=== PATIENT | female | born 1970 | race Hispanic/Latino ===

== ENCOUNTER 2016-08-15 21:21 | Emergency (ER) | payer OTHER ==
[2016-08-15 21:34] VITALS: BP 103/66; PULSE 98; RESP 22; TEMP 98; O2SAT 100
[2016-08-15] MEDS ORDERED: Sodium Chloride 0.9% 1,000 ML IV STA (22:10)
--- NOTE | 2016-08-15 22:15 | ED PDOC ---
HPI: General Adult Time Seen by Provider: 08/15/16 21:58 Chief Complaint (Nursing): Anxiety Chief Complaint (Provider): "help me" History Per: Patient, Family History/Exam Limitations: other Onset/Duration Of Symptoms: Hrs Additional Complaint(s): Pt is not answering questions. PT only states "help me". According to pt was with his sister and out of no where began acting bizarre at approx 1930. Pt was given xanax (from family member) at 8pm. Pt does not have history of anxiety or depression and has never been on medications for either. Pt nodding to yes and no questions only. PT nods yes to chest pain. states she has been under a lot of stress due to work. Past Medical History Reviewed: Historical Data, Nursing Documentation, Vital Signs Vital Signs: Last Vital Signs Temp 98 F 08/15/16 21:30 Pulse 98 H 08/15/16 21:30 Resp 22 08/15/16 21:30 BP 103/66 08/15/16 21:30 Pulse Ox 100 08/15/16 22:17 - Medical History PMH: No Chronic Diseases Other PMH: History as per . - Surgical History Surgical History: No Surg Hx - Family History Family History: States: Unknown Family Hx - Living Arrangements Living Arrangements: With Family - Social History Current smoker - smoking cessation education provided: No Alcohol: Occasional Drugs: Denies - Allergies Allergies/Adverse Reactions: Allergies Allergy/AdvReac Type Severity Reaction Status Date / Time No Known Allergies Allergy Verified 08/15/16 21:30 Review of Systems ROS Statement: Except As Marked, All Systems Reviewed And Found Negative Cardiovascular: Positive for: Chest Pain Psych: Positive for: Anxiety (?) Physical Exam - Reviewed Nursing Documentation Reviewed: Yes Vital Signs Reviewed: Yes - Physical Exam Appears: Positive for: Well, Non-toxic, No Acute Distress Head Exam: Positive for: ATRAUMATIC, NORMAL INSPECTION, NORMOCEPHALIC Skin: Positive for: Normal Color, Warm, DRY Eye Exam: Positive for: Normal appearance (Pt would not open eyes ) ENT: Positive for: Normal ENT Inspection Neck: Positive for: Normal, Painless ROM Cardiovascular/Chest: Positive for: Regular Rate, Rhythm Respiratory: Positive for: Normal Breath Sounds. Negative for: Accessory Muscle Use, Respiratory Distress Gastrointestinal/Abdominal: Positive for: Normal Exam, Bowel Sounds, Soft Back: Positive for: Normal Inspection Extremity: Positive for: Normal ROM Neurologic/Psych: Positive for: Alert, Other (Pt not answering questions of following directions ) - Laboratory Results Result Diagrams: 08/15/16 22:30 08/15/16 22:30 - ECG O2 Sat by Pulse Oximetry: 100 Pulse Ox Interpretation: Normal Medical Decision Making Medical Decision Making: Pt endosred pending U/A and crsis evaluation. cbc, cmp, alcohol, troponin and urine drug screen normal Head CT normal. Disposition - Clinical Impression Clinical Impression: Altered mental status - Patient ED Disposition Is Patient to be Admitted: Transfer of Care - Disposition Disposition: Transfer of Care Disposition Time: 00:22 Condition: GOOD
[2016-08-15 22:37] LABS: BASO # 0.1 K/uL (0.0-0.2); BASO % 0.6 % (0.0-2.0); EOS # 0.1 K/uL (0.0-0.7); EOS % 0.8 % (0.0-4.0); LYMPH % 11.1 % (20.0-40.0); MEAN CELL VOLUME 87.8 fl (81.0-99.0); MEAN CORPUSCULAR HEMOGLOBIN 29.3 pg (27.0-31.0); MEAN CORPUSCULAR HGB CONC 33.4 g/dL (33.0-37.0); MEAN PLATELET VOLUME 8.3 fl (7.2-11.7); MONO # 0.6 K/uL (0.0-0.8); MONO % 6.6 % (0.0-10.0); NEUT % 80.9 % (50.0-75.0); RED CELL DISTRIBUTION WIDTH 12.8 % (11.5-14.5); WHITE BLOOD COUNT 8.7 K/uL (4.8-10.8)
[2016-08-15 22:50] LABS: ALB/GLOB RATIO 1.6 (1.0-2.1); ALKALINE PHOSPHATASE 41 U/L (38-126); ALT/SGPT 27 U/L (9-52); AST/SGOT 24 U/L (14-36); BILIRUBIN,TOTAL 0.4 mg/dl (0.2-1.3); BLOOD UREA NITROGEN 14 mg/dl (7-17); CALCIUM 9.6 mg/dL (8.4-10.2); CARBON DIOXIDE 24 mmol/L (22-30); CHLORIDE 103 mmol/L (98-107); GFR AFRICAN-AMERICAN > 60; GLUCOSE,RANDOM 113 mg/dL (65-105); POTASSIUM 3.4 MMOL/L (3.6-5.0); SODIUM 138 mmol/l (132-148); TOTAL PROTEIN 7.2 G/DL (6.3-8.2)
[2016-08-16 00:19] LABS: RBC URINE 4 /hpf (0-3); URINE BACTERIA RARE (<OCC); URINE BILIRUBIN NEGATIVE (NEGATIVE); URINE BLOOD NEGATIVE (NEGATIVE); URINE COLOR YELLOW (YELLOW); URINE GLUCOSE (UA) NEG (Normal); URINE KETONE TRACE mg/dL (NEGATIVE); URINE LEUKOCYTE ESTERASE TRACE Leu/uL (Negative); URINE PROTEIN 100 mg/dL (NEGATIVE); URINE UROBILINOGEN 0.2-1.0 mg/dL (0.2-1.0); WBC URINE 2 /hpf (0-5)
--- NOTE | 2016-08-16 08:39 | CT ---
PROCEDURE: CT HEAD WITHOUT CONTRAST. HISTORY: Altered mental status COMPARISON: None available. TECHNIQUE: Axial computed tomography images were obtained through the head/brain without intravenous contrast. Radiation dose: Total exam DLP = 1188 mGy-cm. This CT exam was performed using one or more of the following dose reduction techniques: Automated exposure control, adjustment of the mA and/or kV according to patient size, and/or use of iterative reconstruction technique. FINDINGS: HEMORRHAGE: No intracranial hemorrhage. BRAIN: No mass effect or edema. No atrophy or chronic microvascular ischemic changes. Small hypodensity in the left basal ganglia may represent a prominent perivascular space. VENTRICLES: Unremarkable. No hydrocephalus. CALVARIUM: Unremarkable. PARANASAL SINUSES: Unremarkable as visualized. No significant inflammatory changes. MASTOID AIR CELLS: Unremarkable as visualized. No inflammatory changes. OTHER FINDINGS: None. IMPRESSION: No acute intracranial abnormality. If focal neurologic deficit persists, consider MRI. These findings were preliminarily reported at 11:09 p.m. on 08/15/[address] Ravindra Judge from [place].
--- NOTE | 2016-08-16 10:10 | RAD ---
HISTORY: chest pain COMPARISON: No prior. FINDINGS: LUNGS: No active pulmonary disease. PLEURA: No significant pleural effusion identified, no pneumothorax apparent. CARDIOVASCULAR: Normal. OSSEOUS STRUCTURES: No significant abnormalities. VISUALIZED UPPER ABDOMEN: Normal. OTHER FINDINGS: None. IMPRESSION: No active disease.
--- NOTE | 2016-08-17 09:23 | CON ---
DATE: 08/16/2016 NEUROLOGY CONSULTATION REASON FOR CONSULTATION: Difficulty with speech. HISTORY OF PRESENTING ILLNESS: The patient is a 46-year-old female who has been asked for evaluation of episode of difficulty with speech. Yesterday, the patient was home, and she said she was under a lot of stress to work, and as she was trying to text her aunt, she did not know how to text her. Jean dickey was unable to speak, and the words were not coming out right, and she was a little confused, as per . Her symptoms lasted for an hour or two, and then after that, she started getting better sl owly and gradually. At the moment, she complains of headache. According to her, she had severe epis ode of anxiety a few years ago as well. She denies any focal weakness in arms or legs. Denies any d izziness. Does complain of mild headache. She usually does not get bad headaches. At the moment, s he feels fine. REVIEW OF SYSTEMS: Denies any chest pain. She does have mild headache. Denies any constipation, di arrhea, dysuria, pyuria, cough, sputum production, hallucinations, skin rash, or any abnormal swelli ng of the body. PAST MEDICAL HISTORY: None. MEDICATIONS AT HOME: None. ALLERGIES: No known drug allergies. SOCIAL HISTORY: Denies smoking, socially drinks alcohol. Denies use of any illicit drugs. FAMILY HISTORY: Noncontributory to the case. PHYSICAL EXAMINATION: GENERAL: The patient is a middle-aged female lying on the bed in no acute distress. VITAL SIGNS: Her blood pressure is 124/80. Heart rate is 76 per minute, breathing at a rate of 16 p er minute. Temp is afebrile. HEENT: Normocephalic, atraumatic. NECK: Supple. There are no carotid bruits. LUNGS: Clear. CARDIOVASCULAR: S1, S2 audible. No murmurs. ABDOMEN: Soft and nontender with bowel sounds present. NEUROLOGIC EXAMINATION: MENTAL STATUS: The patient is awake, alert, oriented to time, place, and person. Speech is fluent. Naming and repetition are normal. Memory and cognition are intact. CRANIAL NERVES: Pupils are 4 mm bilaterally reactive to light. Visual brantley are full. Extraocular movements are intact. There is no facial asymmetry. Palate is upgoing bilaterally, and tongue is m idline. MOTOR: Tone is normal. Power is 5/5 bilaterally in all extremities. Reflexes +2 and symmetrical. Plantars are downgoing bilaterally. CEREBELLAR: [id number] shows no dysmetria. SENSORY: Intact to soft touch and pinprick. GAIT: Deferred at the moment. LABS REVIEWED: Urine toxicology screen negative. CT scan of the head shows no acute intracranial pathology. IMPRESSION: Status post altered mental status with difficulty with speech. This may have been secon honey to anxiety versus possible transient ischemic attack. RECOMMENDATIONS: 1. The patient to have MRI of the brain without contrast. 2. The patient will also require an electroencephalogram. However, this can be done as outpatient. 3. If the patient's MRI of the brain is negative, then she may be discharged with outpatient followu p for further workup ____ EEG and possible carotid ultrasound. 4. Migraine accompaniment is also a possibility. Thank you for the opportunity to participate in the care of this patient. Rossy Steven MD cc: [id number] TT: 08/16/2016 10:33:11 Confirmation # [id number] Dictation # [id number] ananth
--- NOTE | 2016-08-17 09:45 | MRI ---
PROCEDURE: MRI BRAIN WITHOUT CONTRAST HISTORY: TIA COMPARISON: None. TECHNIQUE: Multiplanar, multisequence MR images of the brain were obtained without intravenous contrast enhancement. FINDINGS: HEMORRHAGE: None DWI: No evidence of an acute or early subacute infarction. BRAIN PARENCHYMA: No mass effect or edema. No atrophy or chronic microvascular ischemic changes. VENTRICLES: Unremarkable. No hydrocephalus. CRANIUM: Unremarkable. ORBITS: Grossly unremarkable. PARANASAL SINUSES/MASTOIDS: There is circumscribed high signal intensity seen in the anterior sphenoid bone, abutting the posterior margin of the sphenoid sinus. This appears to follow signal intensity on all pulse sequences and may reflect abnormal maturation of the anterior skullbase. It is unlikely that this focal high-signal is related to the content of the sphenoid sinus. Nevertheless, further evaluation with maxillofacial CT to include the clivus, is recommended, on a nonemergent basis. No other abnormal signal is seen within the paranasal sinuses. VASCULAR SYSTEM: Skull base flow voids intact. OTHER FINDINGS: None. IMPRESSION: No evidence of intracranial mass, hemorrhage or acute infarct. Abnormal signal within the anterior skullbase/ posterior sphenoid margin. Uncertain significance. Evaluation with noncontrast maxillofacial CT to include skullbase is advised on a nonemergent basis, for further evaluation. Unremarkable non contrast enhanced MRI of the brain.
== END 2016-08-16 14:30 | disposition left against medical advice (07) ==
LOC: H.ER 21:21
DX: G45.9 Transient cerebral ischemic attack, unspecified (principal)